=== PATIENT | male | born 1990 | race African-American/Black ===

== ENCOUNTER 2021-02-12 15:05 | Emergency (ER) | payer OTHER ==
[~2021-02-12] VITALS: Ht 172.7 cm; Wt 74.8 kg
[~2021-02-12 15:05] MED LIST: NOHOMEMEDICATIONS
[2021-02-12 15:18] VITALS: BP 133/84
[2021-02-12] MEDS ORDERED: PROMETH-CODEIN 65 ML PO ×2 (17:30→17:54)
== END 2021-02-12 18:32 | disposition home or self-care (01) ==
LOC: ER 15:05
DX: R05 Cough (principal); Z20.822 Contact with and (suspected) exposure to COVID-19; M25.561 Pain in right knee; W23.0XXA Caught, crushed, jammed, or pinched between moving objects, initial encounter; Y93.89 Activity, other specified; Y92.810 Car as the place of occurrence of the external cause; Y99.8 Other external cause status

== ENCOUNTER 2021-05-17 11:04 | Emergency (ER) | payer OTHER ==
[~2021-05-17] VITALS: Ht 172.7 cm; Wt 74.8 kg
[2021-05-17 11:04] VITALS: BP 141/70
[~2021-05-17 11:04] MED LIST changes: +PROMETH-CODEIN 65 ML PO
[2021-05-17] MEDS ORDERED: AMOXICILLIN 50500 M1 PO (11:35)
[2021-05-17] MEDS ORDERED: PERIDEX15 ML SWISH&SPIT (11:35)
== END 2021-05-17 11:39 | disposition home or self-care (01) ==
LOC: ER 11:04
DX: K04.7 Periapical abscess without sinus (principal); K08.89 Other specified disorders of teeth and supporting structures

== ENCOUNTER 2021-10-04 11:17 | Emergency (ER) | payer OTHER ==
[~2021-10-04] VITALS: Ht 175.3 cm; Wt 72.6 kg
[~2021-10-04 11:17] MED LIST changes: +AMOXICILLIN 50500 M1 PO; +PERIDEX15 ML SWISH&SPIT
[2021-10-04 11:22] VITALS: BP 116/96
== END 2021-10-04 12:23 | disposition home or self-care (01) ==
LOC: ER 11:17
DX: N34.2 Other urethritis (principal)